=== PATIENT | female | born 1960 | race Caucasian/White ===

== ENCOUNTER 2016-10-03 10:02 | Emergency (ER) | payer MEDICAID ==
[~2016-10-03] VITALS: Ht 167.6 cm; Wt 69.4 kg
[~2016-10-03 10:02] MED LIST: ALENDRONATE SOD70 M1 PO; ASPIRIN81 M1 PO; BACLOFEN10 M1 PO; CARBAMAZEPINE200 MG PO; CARBAMAZEPINE400 MG PO; CLARITIN10 MG PO; DETROL LA; DETROL2 MG PO; DIAZEPAM5 MG PO; DIPHEN PO; EC NAPROSYN500 MG PO; GABAPENTIN400 M1 PO; HALOPERIDOL0.5 MG PO; HALOPERIDOL1 MG PO; LEVOTHYROXIN0.075 M1 PO; LIORESAL10 MG PO; NEURONTIN400 M1; NEURONTIN400 MG PO; OXYBUTYNIN5 MG PO; OYSTER CALCIUM1 TAB PO; OYSTER SHELL CA PO; SEROQUEL100 MG; SEROQUEL100 MG PO; TEGRETOL-XR200 MG; TOPAMAX25 MG PO; TOPOMAX; TRAZODONE50 M2 PO; TYLENOL ES500 MG PO; [UNRECOGNIZED DRUG - REMARK]
[2016-10-03 10:13] VITALS: BP 127/74
--- NOTE | 2016-10-03 10:15 | NUR ---
56/F [facility] FACILITY STAFF FOR C/O PAIN TO LEFT FOOT, PT. STATES SHE STEPPED ON OWN FOOT YESTERDAY 0.
--- NOTE | 2016-10-03 10:20 | NUR ---
Patient being evaluated by physician at bedside.
--- NOTE | 2016-10-03 10:29 | NUR ---
X-Ray at bedside.
[2016-10-03] MEDS ORDERED: IBUPROFEN 800 MG TAB PO ONE (10:50)
--- NOTE | 2016-10-03 11:00 | NUR ---
PT STS ALLERGIC TO MOTRIN. DR. DIAZ MADE AWARE.
[2016-10-03] MEDS ORDERED: ACETAMINOPHEN EXTRA STRENGTH 500 MG TAB PO ONE (11:10)
--- NOTE | 2016-10-03 11:10 | NUR ---
PT LEFT 2ND, 3RD, AND 4TH TOES STEFANY TAPED. WITH ORHTOSHOE APPLIED. PT DEVANG WELL.
--- NOTE | 2016-10-03 11:30 | NUR ---
Patient discharged with v/s stable. Written and verbal after care instructions given and explained. Patient alert, oriented and verbalized understanding of instructions. WHEELCHAIRED WITH FACILITY CAREGIVER. All questions addressed prior to discharge. ID band removed. Patient advised to follow up with PMD. Opportunity to ask questions provided and answered.
[2016-10-03 11:31] VITALS: BP 121/70
== END 2016-10-03 11:30 | disposition home or self-care (01) ==
LOC: MED 10:02
DX: S92.515A Nondisplaced fracture of proximal phalanx of left lesser toe(s), initial encounter for closed fracture (principal); Z88.5 Allergy status to narcotic agent; Z88.6 Allergy status to analgesic agent; Z79.82 Long term (current) use of aspirin; Z79.899 Other long term (current) drug therapy; X58.XXXA Exposure to other specified factors, initial encounter; Y93.89 Activity, other specified; Y92.89 Other specified places as the place of occurrence of the external cause; Y99.8 Other external cause status
CPT/HCPCS: 73620; 99284; Q0092

== ENCOUNTER 2017-06-30 20:10 | Inpatient (IN) | payer MEDICAID ==
[~2017-06-30] VITALS: Ht 167.6 cm; Wt 71.2 kg
[~2017-06-30 20:10] MED LIST changes: +ACET-6134 PO; -ALENDRONATE SOD70 M1 PO; +ASPI81CT89 PO; -ASPIRIN81 M1 PO; +BACL10TA4 PO; -BACLOFEN10 M1 PO; +CARB400T7 PO; -CARBAMAZEPINE200 MG PO; -CARBAMAZEPINE400 MG PO; -CLARITIN10 MG PO; -DETROL LA; -DETROL2 MG PO; -DIAZEPAM5 MG PO; -DIPHEN PO; -EC NAPROSYN500 MG PO; +GABA400C PO; -GABAPENTIN400 M1 PO; +HALO1TAB21 PO; -HALOPERIDOL0.5 MG PO; -HALOPERIDOL1 MG PO; +LEVO0.0712 PO; -LEVOTHYROXIN0.075 M1 PO; -LIORESAL10 MG PO; +LORA10TA19 PO; -NEURONTIN400 M1; -NEURONTIN400 MG PO; +OXYB5TAB24 PO; -OXYBUTYNIN5 MG PO; -OYSTER CALCIUM1 TAB PO; -OYSTER SHELL CA PO; -SEROQUEL100 MG; -SEROQUEL100 MG PO; -TEGRETOL-XR200 MG; -TOPAMAX25 MG PO; -TOPOMAX; +TRAZ-286 PO; -TRAZODONE50 M2 PO; -TYLENOL ES500 MG PO; +[UNRECOGNIZED DRUG - CODE] PO; +[UNRECOGNIZED DRUG - CODE] PO; -[UNRECOGNIZED DRUG - REMARK]
[2017-06-30 20:23] VITALS: BP 84/48
[2017-06-30] MEDS ORDERED: NACL 0.9% 3,000 ML IV ONE (20:55)
--- NOTE | 2017-06-30 20:57 | NUR ---
PT TAKEN TO BED 7
--- NOTE | 2017-06-30 21:00 | NUR ---
PATIENT IS A 56 Y/O FEMALE WHO PRESENTS TO THE ED C/O LOW BLOOD PRESSURE. PT COMES FROM [facility]. PT STATES, "I WASN'T FEELING GOOD AND WAS HAVING A HEADACHE AND CHILLS." PT DENIES CP, REPORTS NAUSEA, DENIES VOMITING/DIARRHEA, REPORTS SOB, LUNG SOUNDS CLEAR BL. PT DENIES PAIN. PT AAOX4, RR EVEN/UNLABORED. PT REPOSITIONED FOR COMFORT, BED IN LOWEST POSITION. ER MD DR. STEINER NOTIFIED. WILL CONTINUE TO MONITOR.
[2017-06-30 21:42] LABS: BASOPHILS # (AUTO) 0.2 K/uL (0.00-0.22); BASOPHILS % (AUTO) 1.6 % (0.0-2.0); EOSINOPHILS # (AUTO) 0.2 K/uL (0-0.4); EOSINOPHILS % (AUTO) 1.7 % (0.0-4.0); HEMATOCRIT 33.9 % (36-48); HEMOGLOBIN 11.5 g/dL (12.0-16.0); LYMPHOCYTES # (AUTO) 0.8 K/uL (2.5-16.5); LYMPHOCYTES % (AUTO) 5.8 % (20.5-51.1); MEAN CORPUSCULAR HEMOGLOBIN 31 pg (27-31); MEAN CORPUSCULAR HGB CONC 34 g/dL (33-37); MEAN CORPUSCULAR VOLUME 93 fL (80-94); MONOCYTES # (AUTO) 0.4 K/uL (0.8-1.0); MONOCYTES % (AUTO) 2.7 % (1.7-9.3); NEUTROPHILS # (AUTO) 11.9 K/uL (1.8-7.7); NEUTROPHILS % (AUTO) 88.2 % (42.2-75.2); PLATELET COUNT (AUTO) 228 K/uL (140-450); RED BLOOD CELL COUNT(AUTO) 3.67 MIL/uL (4.20-5.40); RED CELL DISTRIBUTION WIDTH 12.2 % (11.6-13.7); WHITE BLOOD COUNT (AUTO) 13.5 K/uL (4.8-10.8)
[2017-06-30 21:45] LABS: ANION GAP 14.1 (8-16); CARBON DIOXIDE 23.1 mmol/L (21-32); CREATININE 2.3 mg/dL (0.6-1.3); POTASSIUM 3.2 mmol/L (3.5-5.1)
[2017-06-30 21:50] LABS: ALBUMIN 2.8 g/dL (3.4-5.0); TOTAL BILIRUBIN 0.4 mg/dL (0.0-1.0)
[2017-06-30] MEDS ORDERED: PIPERACILLIN/TAZOBACTAM 3.375 GM in DEXTROSE 5% 50 ML IV ONE (21:50)
[2017-06-30 21:53] LABS: PROTHROMBIN TIME 12.5 secs (10.8-13.4)
[2017-06-30] MEDS ORDERED: ACETAMINOPHEN 325 MG TAB PO PRN (22:05)
[2017-06-30] MEDS ORDERED: ONDANSETRON 4 MG/2 ML VIAL IVP PRN (22:05)
[2017-06-30] MEDS ORDERED: POTASSIUM CHLORIDE 40 MEQ, LIDOCAINE 1% 25 MG in NACL 0.9% 250 ML IV ONE (22:10)
[2017-06-30] MEDS ORDERED: PIPERACILLIN/TAZOBACTAM 3.375 GM VIAL IV ONE (22:14)
--- NOTE | 2017-06-30 22:23 | NUR ---
Patient will be admitted to care of [facility]. Admited to DR. MOLINA. Will go to room 108A. Belongings list completed. Report to TONI BRYSON.
[2017-06-30 23:30] VITALS: BP 106/58
--- NOTE | 2017-06-30 23:30 | NUR ---
PATIENT ADMITTED TO THE UNIT FROM ER. PATIENT BROUGHT IN BY JUANY. PATIENT IS AWAKE, ALERT, AND ORIENTED. NO SIGNS AND SYMPTOMS OF DISTRESS NOTED. IV SITE NOTED ON RIGHT HAND, ASYMPTOMATIC, INTACT AND PATENT. SEIZURE PRECAUTIONS PUT IN PLACE. BED IN LOWEST POSITION, SIDE RAILS UP AND CALL LIGHT WITHIN REACH. WILL CONTINUE TO MONITOR.
[2017-06-30 23:32] LABS: APPEARANCE,URINE SL CLOUDY (CLEAR); BILIRUBIN,URINE NEGATIVE (NEGATIVE); BLOOD, URINE NEGATIVE (NEGATIVE); COLOR,URINE YELLOW (YELLOW); LEUKOCYTE ESTERASE ,URINE 2+ (NEGATIVE); NITRITE, URINE POSITIVE (NEGATIVE); UGLUCOSE NEGATIVE (NEGATIVE)
[2017-06-30] MEDS ORDERED: ACETAMINOPHEN EXTRA STRENGTH 500 MG TAB PO PRN (23:55)
[2017-06-30 23:56] LABS: RBC,URINE 0-5 (RARE) /HPF (0-5); WBC,URINE TOO MANY TO COUNT /HPF (0-5)
[2017-06-30 23:58] LABS: FREE T4 (FREE THYROXINE) 1.05 ng/dL (0.76-1.46); MAGNESIUM 1.5 mg/dL (1.8-2.4); PHOSPHORUS 3.3 mg/dL (2.5-4.9); THYROID STIMULATING HORMONE 1.73 uIU/mL (0.34-3.74)
[2017-07-01] MEDS: NACL 0.9% 1,000 ML IV SCH ×4 (00:15→23:19)
[2017-07-01] MEDS ORDERED: SUMAtriptan 50 MG TAB PO ONE (00:55)
[2017-07-01] MEDS ORDERED: POTASSIUM CHLORIDE 10 MEQ TABER PO ONE (01:00)
--- NOTE | 2017-07-01 01:00 | NUR ---
TRIED CALLING [facility] SEVERAL TIMES TO GET NEW ORDERS VERIFIED. PHONE NUMBER IS NOT WORKING. [phone]
--- NOTE | 2017-07-01 01:08 | NUR ---
[employer] OPERATIONS SPECIALIST UNABLE TO DRAW BLOOD FOR LACTIC ACID. WILL RECHECK IN THE MORNING
[2017-07-01] MEDS ORDERED: MAG SULF 2000 MG/WATER PREMIX 50 ML IV ONE (01:10)
[2017-07-01 04:00] VITALS: BP 105/57
[2017-07-01] MEDS ORDERED: PIPERACILLIN/TAZOBACTAM 3.375 GM VIAL IV ONE (04:23)
[2017-07-01] MEDS ORDERED: PIPERACILLIN/TAZOBACTAM 3.375 GM in DEXTROSE 5% 50 ML IV SCH (05:00)
[2017-07-01 07:16] LABS: BASOPHILS # (AUTO) 0.1 K/uL (0.00-0.22); BASOPHILS % (AUTO) 0.6 % (0.0-2.0); EOSINOPHILS # (AUTO) 0.2 K/uL (0-0.4); EOSINOPHILS % (AUTO) 2.1 % (0.0-4.0); HEMATOCRIT 31.3 % (36-48); HEMOGLOBIN 10.4 g/dL (12.0-16.0); LYMPHOCYTES # (AUTO) 0.7 K/uL (2.5-16.5); LYMPHOCYTES % (AUTO) 6.1 % (20.5-51.1); MEAN CORPUSCULAR HEMOGLOBIN 31 pg (27-31); MEAN CORPUSCULAR HGB CONC 33 g/dL (33-37); MEAN CORPUSCULAR VOLUME 93 fL (80-94); MONOCYTES # (AUTO) 0.4 K/uL (0.8-1.0); MONOCYTES % (AUTO) 3.5 % (1.7-9.3); NEUTROPHILS # (AUTO) 9.5 K/uL (1.8-7.7); NEUTROPHILS % (AUTO) 87.7 % (42.2-75.2); PLATELET COUNT (AUTO) 172 K/uL (140-450); RED BLOOD CELL COUNT(AUTO) 3.36 MIL/uL (4.20-5.40); RED CELL DISTRIBUTION WIDTH 12.5 % (11.6-13.7); WHITE BLOOD COUNT (AUTO) 10.9 K/uL (4.8-10.8)
--- NOTE | 2017-07-01 07:17 | NUR ---
PATIENT REPORT GIVEN TO MORNING NURSE AT BEDSIDE. PATIENT IS IN STABLE CONDITION.
[2017-07-01 07:25] LABS: ANION GAP 12.2 (8-16); CARBON DIOXIDE 20.6 mmol/L (21-32); CREATININE 1.2 mg/dL (0.6-1.3); POTASSIUM 3.8 mmol/L (3.5-5.1)
--- NOTE | 2017-07-01 07:30 | NUR ---
PATIENT REPORT RECEIVED AT BEDSIDE FROM NIGHT RN. PATIENT IS AWAKE, ALERT, AND ORIENTEDX4. NO SIGNS AND SYMPTOMS OF DISTRESS NOTED. IV SITE NOTED ON RIGHT HAND, ASYMPTOMATIC, INTACT AND PATENT. SEIZURE PRECAUTIONS IN PLACE. BED IN LOWEST POSITION, SIDE RAILS UP AND CALL LIGHT WITHIN REACH. WILL CONTINUE TO MONITOR.
[2017-07-01 07:45] LABS: MAGNESIUM 2.4 mg/dL (1.8-2.4)
--- NOTE | 2017-07-01 08:22 | NUR ---
PATIENT HAS BEEN SCREENED AND CATEGORIZED HIGH NUTRITION RISK. PATIENT WILL BE SEEN WITHIN 1-2 DAYS OF ADMISSION. 07/01/17-07/02/[address]
[2017-07-01 08:52] VITALS: BP 131/66
[2017-07-01] MEDS ORDERED: CARBAMAZEPINE 600 MG PO SCH (09:00)
[2017-07-01] MEDS ORDERED: PHENYTOIN 100 MG CAPER PO SCH (09:00)
--- NOTE | 2017-07-01 09:00 | NUR ---
PT REFUSED TO EAT BREAKFAST BECAUSE OF VOMITING EPISODEX1. MADE DR HARDING AWARE.
[2017-07-01] MEDS: HALOPERIDOL 1 MG TAB PO SCH ×2 (09:10→21:05)
[2017-07-01] MEDS: CALCIUM CARB/VIT-D 500 MG/200 IU 1 TAB PO SCH ×2 (09:10→21:03)
[2017-07-01] MEDS: LORATADINE 10 MG TAB PO SCH (09:11)
[2017-07-01] MEDS: GABAPENTIN 100 MG CAP PO SCH ×3 (09:11→17:45)
[2017-07-01] MEDS: LEVOTHYROXINE 0.075 MG TAB PO SCH (09:11)
[2017-07-01] MEDS: ASPIRIN 81 MG TAB.CHEW PO SCH (09:12)
[2017-07-01] MEDS: DOCUSATE SODIUM 100 MG GELCAP PO SCH ×2 (09:12→21:03)
[2017-07-01] MEDS: LACTOBACILLUS RHAMNOSUS GG 1 EACH CAP PO SCH (09:13)
[2017-07-01] MEDS: OXYBUTYNIN 5 MG TAB PO SCH ×2 (10:09→21:04)
[2017-07-01] MEDS: PANTOPRAZOLE 40 MG INJ VIAL IVP SCH (10:23)
--- NOTE | 2017-07-01 11:13 | NUR ---
pATIENT REFUSED IS AT 11:00AM. LEFT IS AT PATIENT BEDSIDE
[2017-07-01 12:00] VITALS: BP 125/56
[2017-07-01] MEDS: PIPER/TAZO 3.375GM/D5W PREMIX 50 ML IV SCH ×2 (12:24→21:09)
[2017-07-01] MEDS ORDERED: SODIUM PHOS / POTASSIUM PHOS 1 PKT PDR PO SCH (12:52)
--- NOTE | 2017-07-01 13:15 | NUR ---
SPOKE WITH ALFA FROM [facility], [id number]. SHE SAID TO FAX ONLY TO THEM BECAUSE THE PATIENT IS OUT OF AREA, NO NEED TO FAX TO [facility]. FAXED INITIAL REVIEW TO FERNANDO AT [phone]
--- NOTE | 2017-07-01 13:28 | NUR ---
07/01/17 RD INITIAL ASSESSMENT COMPLETED PLEASE REFER TO NUTRITION ASSESSMENT UNDER CARE ACTIVITY FOR ESTIMATED NUTRITIONAL NEEDS. 1. CONTINUE REGULAR DIET TOLERATED PER MD --RD TO MONITOR RENAL LAB VALUES FOR A POSSIBLE CHANGE IN DIET ORDER 2. ENCOURAGE INCREASED PO INTAKES 3. RD TO FOLLOW-UP 3-5 DAYS, MODERATE RISK JOSH COOPER, RD
[2017-07-01 16:00] VITALS: BP 125/59
--- NOTE | 2017-07-01 16:30 | NUR ---
PT C/O OF HEADACHE, TYLENOL WAS NOT EFFECTIVE. MADE DOCTOR AWARE. MD WILL PUT NEW ORDERS.
[2017-07-01] MEDS ORDERED: APAP/BUTAL/CAFF 325/50/40 MG 1 TAB PO SCH (17:00)
--- NOTE | 2017-07-01 18:00 | NUR ---
CALLED PHARM ABOUT FIORICET WASN'T AVAILABLE. PHARM STATED WILL DELIVER.
--- NOTE | 2017-07-01 19:16 | NUR ---
PT REFUSED TO USE THE IS, SHE SAID THAT IS NOT SOB AND DOES NOT KNOW WHY THEY ORDER.
--- NOTE | 2017-07-01 19:30 | NUR ---
PATIENT REPORT GIVEN TO NIGHT RN AT BEDSIDE. PATIENT IS IN STABLE CONDITION.
--- NOTE | 2017-07-01 19:31 | NUR ---
PATIENT REPORT RECEIVED FROM MORNING NURSE. PATIENT IS AWAKE, ALERT, AND ORIENTED. NO SIGNS AND SYMPTOMS OF DISTRESS NOTED. SEIZURE PRECAUTIONS AND FALL PRECAUTIONS IN PLACE. IV SITE NOTED ON RIGHT HAND AND LEFT WRIST. BED IN LOWEST POSITION, SIDE RAILS UP AND CALL LIGHT WITHIN REACH. WILL CONTINUE TO MONITOR.
[2017-07-01 20:00] VITALS: BP 130/69
[2017-07-01] MEDS: BACLOFEN 10 MG TAB PO SCH (21:04)
[2017-07-01] MEDS: carBAMazepine 200 MG TAB PO SCH (21:04)
[2017-07-01] MEDS: traZODone 50 MG TAB PO SCH (21:04)
[2017-07-01] MEDS: levETIRAcetam 500 MG TAB PO SCH (21:05)
[2017-07-01] MEDS ORDERED: APAP/BUTAL/CAFF 325/50/40 MG 1 TAB ONE (22:20)
[2017-07-02] VITALS: BP 128/65
[2017-07-02] MEDS: HYDROcodone/APAP 7.5/325 MG 1 TAB PO PRN (00:46)
[2017-07-02 04:00] VITALS: BP 127/64
[2017-07-02] MEDS: PIPER/TAZO 3.375GM/D5W PREMIX 50 ML IV SCH ×3 (05:13→21:06)
[2017-07-02] MEDS ORDERED: ALENDRONATE SODIUM 70 MG TAB PO SCH (06:00)
[2017-07-02] MEDS: NACL 0.9% 1,000 ML IV SCH ×4 (06:12→23:45)
[2017-07-02 07:07] LABS: BASOPHILS # (AUTO) 0.1 K/uL (0.00-0.22); EOSINOPHILS # (AUTO) 0.2 K/uL (0-0.4); EOSINOPHILS % (AUTO) 3.4 % (0.0-4.0); HEMATOCRIT 28.8 % (36-48); HEMOGLOBIN 9.5 g/dL (12.0-16.0); LYMPHOCYTES # (AUTO) 1.4 K/uL (2.5-16.5); LYMPHOCYTES % (AUTO) 30.1 % (20.5-51.1); MEAN CORPUSCULAR HEMOGLOBIN 31 pg (27-31); MEAN CORPUSCULAR HGB CONC 33 g/dL (33-37); MEAN CORPUSCULAR VOLUME 93 fL (80-94); MONOCYTES # (AUTO) 0.4 K/uL (0.8-1.0); MONOCYTES % (AUTO) 7.7 % (1.7-9.3); NEUTROPHILS # (AUTO) 2.6 K/uL (1.8-7.7); NEUTROPHILS % (AUTO) 55.8 % (42.2-75.2); PLATELET COUNT (AUTO) 171 K/uL (140-450); RED CELL DISTRIBUTION WIDTH 12.5 % (11.6-13.7); WHITE BLOOD COUNT (AUTO) 4.7 K/uL (4.8-10.8)
--- NOTE | 2017-07-02 07:22 | NUR ---
PATIENT REPORT GIVEN TO MORNING NURSE AT BEDSIDE. PATIENT IS IN STABLE CONDITION
--- NOTE | 2017-07-02 07:23 | NUR ---
RECEIVED REPORT FROM METAL WEATHER STRIPPER NURSE. PATIENT SITTING IN BED WITH BREAKFAST TRAY IN FRONT. NO DISTRESS NOTED, DENIES ANY PAIN AT THIS TIME. AAOX4, SKIN COLOR APPROPRIATE TO ETHNICITY, CALM, COOPERATIVE, WARM TO TOUCH. SKIN IS INTACT. IV SITE IS INTACT, PATENT, AND INFUSING. LUNGS CTA ON ALL LOBES. ABDOMEN SOFT, NON-DISTENDED. ASSISTED PATIENT ON TO BEDPAN. REVIEWED PLAN OF CARE WITH PATIENT. PATIENT VERBALIZED UNDERSTANDING. SAFETY MEASURES IN PLACE, FALL PRECAUTIONS IN PLACE. WILL CONTINUE TO MONITOR.
[2017-07-02 07:27] LABS: ANION GAP 14.2 (8-16); CARBON DIOXIDE 20.2 mmol/L (21-32); CREATININE 0.8 mg/dL (0.6-1.3); POTASSIUM 3.4 mmol/L (3.5-5.1)
[2017-07-02 07:47] LABS: MAGNESIUM 1.8 mg/dL (1.8-2.4); PHOSPHORUS 2.3 mg/dL (2.5-4.9)
[2017-07-02 08:00] VITALS: BP 143/94
--- NOTE | 2017-07-02 08:00 | NUR ---
ASSISTED PATIENT WITH BEDPAN FOR BOWEL MOVEMENT. CONDITION UNCHANGED. SAFETY MEASURES IN PLACE, CALL LIGHT WITHIN REACH. WILL CONTINUE TO MONITOR.
[2017-07-02] MEDS: PANTOPRAZOLE 40 MG INJ VIAL IVP SCH ×2 (09:00→09:38)
--- NOTE | 2017-07-02 09:30 | NUR ---
PATIENT SITTING IN BED. NO DISTRESS NOTED. DENIES ANY PAIN. RESPIRATIONS EVEN, UNLABORED ON ROOM AIR. MEDICATIONS DUE GIVEN. AAOX4, CALM, COOPERATIVE. ASSISTED PATIENT WITH BEDPAN. CONTINUES TO HAVE GENERALIZED WEAKNESS. SAFETY MEASURES IN PLACE, CALL LIGHT WITHIN REACH. WILL CONTINUE TO MONITOR.
[2017-07-02] MEDS: ASPIRIN 81 MG TAB.CHEW PO SCH (09:38)
[2017-07-02] MEDS: levETIRAcetam 500 MG TAB PO SCH ×2 (09:39→21:08)
[2017-07-02] MEDS: CALCIUM CARB/VIT-D 500 MG/200 IU 1 TAB PO SCH ×2 (09:39→21:08)
[2017-07-02] MEDS: OXYBUTYNIN 5 MG TAB PO SCH ×2 (09:39→21:07)
[2017-07-02] MEDS: carBAMazepine 200 MG TAB PO SCH ×2 (09:40→21:08)
[2017-07-02] MEDS: LACTOBACILLUS RHAMNOSUS GG 1 EACH CAP PO SCH (09:40)
[2017-07-02] MEDS: LORATADINE 10 MG TAB PO SCH (09:40)
[2017-07-02] MEDS: LEVOTHYROXINE 0.075 MG TAB PO SCH (09:41)
[2017-07-02] MEDS: HALOPERIDOL 1 MG TAB PO SCH ×2 (09:41→21:07)
[2017-07-02] MEDS: DOCUSATE SODIUM 100 MG GELCAP PO SCH ×2 (09:41→21:06)
--- NOTE | 2017-07-02 10:30 | NUR ---
DR. HARDING AT BEDSIDE REVIEWING PLAN OF CARE WITH PATIENT. WILL CONTINUE TO MONITOR.
[2017-07-02] MEDS: GABAPENTIN 100 MG CAP PO SCH ×3 (10:41→17:35)
--- NOTE | 2017-07-02 11:30 | NUR ---
PATIENT SITTING IN BED WITH FAMILY MEMBERS AT BEDSIDE. PATIENT HAS LUNCH TRAY IN FRONT AND IS EATING. NO DISTRESS NOTED. DENIES ANY PAIN. CONDITION UNCHANGED. SAFETY MEASURES IN PLACE, CALL LIGHT WITHIN REACH. WILL CONTINUE TO MONITOR.
[2017-07-02 12:00] VITALS: BP 135/57
--- NOTE | 2017-07-02 13:10 | NUR ---
PATIENT SITTING IN BED WATCHING TV. NO DISTRESS NOTED. DENIES ANY PAIN. CONDITION UNCHANGED. MEDICATIONS DUE GIVEN. UNABLE TO START ZOSYN IVPB AT THIS TIME. BOTH IV SITES ARE INFILTRATED. IV SITES REMOVED WITH MINIMAL BLOOD AND LUMEN COMPLETELY INTACT. ATTEMPTED TO START A NEW IV LINE, UNSUCCESSFUL ON FIRST ATTEMPT. PATIENT IS A DIFFICULT STICK. NOTIFIED CHARGE NURSE. CHARGE NURSE TO ATTEMPT TO START A NEW IV LINE. SAFETY MEASURES IN PLACE, CALL LIGHT WITHIN REACH. WILL CONTINUE TO MONITOR.
--- NOTE | 2017-07-02 15:26 | NUR ---
PATIENT SITTING IN BED WATCHING TV. NEW IV LINE ON LEFT HAND STARTED BY CHARGE NURSE ON FIRST ATTEMPT. IV ZOSYN STARTED, AND IVF STARTED AGAIN. NO DISTRESS NOTED, CALL LIGHT WITHIN REACH. CONDITION UNCHANGED. WILL CONTINUE TO MONITOR.
[2017-07-02 16:00] VITALS: BP 134/59
[2017-07-02] MEDS ORDERED: GABAPENTIN 300 MG CAP ONE (17:14)
[2017-07-02] MEDS ORDERED: GABAPENTIN 100 MG CAP ONE (17:14)
--- NOTE | 2017-07-02 17:30 | NUR ---
PATIENT LYING IN BED SLEEPING. AROUSABLE BY VOICE. NO DISTRESS NOTED. DENIES ANY PAIN. RESPIRATIONS EVEN, UNLABORED, ON ROOM AIR. CONDITION UNCHANGED. MEDICATIONS DUE GIVEN. ASSISTED PATIENT ON BED [place] FOR VOIDING. SAFETY MEASURES IN PLACE, CALL LIGHT WITHIN REACH. WILL CONTINUE TO MONITOR.
--- NOTE | 2017-07-02 18:49 | NUR ---
PATIENT SITTING IN BED WATCHING TV. NO DISTRESS NOTED. DENIES ANY PAIN. CONDITION UNCHANGED. SAFETY MEASURES IN PLACE, CALL LIGHT WITHIN REACH. WILL CONTINUE TO MONITOR.
--- NOTE | 2017-07-02 19:20 | NUR ---
GAVE REPORT TO OCCUPATIONAL HEALTH NURSE SUPERVISOR NURSE FOR CONTINUITY OF CARE. PATIENT IN STABLE CONDITION.
--- NOTE | 2017-07-02 19:21 | NUR ---
RECEIVED REPORT FROM DAY SHIFT RN. PT IS A/OX4, ON ROOM AIR. PT HAS A RIGHT HAND 22G IV, INFUSING NS@126ML/HR, INTACT AND ASYMPTOMATIC. SKIN INTACT. PT IS ON BEDREST. SAFETY PRECAUTIONS IN PLACE. UPDATED BOARD. DISCUSSED PLAN OF CARE WITH PT, PT VERBALIZED UNDERSTANDING. VITAL SIGNS WITHIN NORMAL LIMITS. VITAL SIGNS ARE WITHIN NORMAL LIMITS. PT IN STABLE CONDITION, NO SIGNS OF DISTRESS NOTED. BED IN LOW POSITION, CALL LIGHT WITHIN REACH. WILL CONTINUE TO MONITOR.
[2017-07-02 20:00] VITALS: BP 134/75
[2017-07-02] MEDS: traZODone 50 MG TAB PO SCH (21:07)
[2017-07-02] MEDS: BACLOFEN 10 MG TAB PO SCH (21:08)
[2017-07-03] VITALS: BP 152/73
[2017-07-03 04:00] VITALS: BP 142/74
[2017-07-03] MEDS: PIPER/TAZO 3.375GM/D5W PREMIX 50 ML IV SCH (05:43)
--- NOTE | 2017-07-03 06:15 | NUR ---
PT REFUSED MORNING LABS. SPOKE TO PT, BUT PT DID NOT WANT TO GIVE CONSENT.
[2017-07-03] MEDS: NACL 0.9% 1,000 ML IV SCH (07:00)
--- NOTE | 2017-07-03 07:15 | NUR ---
ENDORSED PT TO DAY SHIFT RN FOR CONTINUITY OF CARE. PT IN STABLE CONDITION.
--- NOTE | 2017-07-03 07:17 | NUR ---
RECEIVED REPORT FROM SOUNDSCRIBER MECHANIC RN. PATIENT IS AAOX4, HAS NO SIGNS AND SYMPTOMS OF ACUTE DISTRESS NOTED AT THIS TIME. RESPIRATIONS ARE EVEN AND UNLABORED. PATIENT HAS NORMAL SALINE INFUSING TO RIGHT HAND 22G AT 126 ML/HR. SITE IS CLEAN, DRY, PATENT AND INTACT. PATIENT HAS HX OF SEIZURES, AND SEIZURE PRECAUTIONS ARE IN PLACE. BED IN LOWEST POSITION, SIDERAILS UP X2 AND PADDED, CALL LIGHT PLACED WITHIN REACH. WILL CONTINUE TO MONITOR.
--- NOTE | 2017-07-03 08:01 | NUR ---
MALLY CORRIGAN, INFORMED ME THAT PATIENTS IV IS OUT. UNKNOWN IF PATIENT TOOK IT OUT HERSELF, SHE STATED THAT SHE DIDN'T TAKE IT OUT. PATIENT HAS NO SIGNS AND SYMPTOMS OF ACUTE DISTRESS NOTED AT THIS TIME. WILL REINSERT IV.
[2017-07-03 08:05] VITALS: BP 142/89
[2017-07-03] MEDS: LACTOBACILLUS RHAMNOSUS GG 1 EACH CAP PO SCH (09:00)
[2017-07-03] MEDS: LORATADINE 10 MG TAB PO SCH (10:18)
[2017-07-03] MEDS: ASPIRIN 81 MG TAB.CHEW PO SCH (10:18)
[2017-07-03] MEDS: CALCIUM CARB/VIT-D 500 MG/200 IU 1 TAB PO SCH (10:19)
[2017-07-03] MEDS: DOCUSATE SODIUM 100 MG GELCAP PO SCH (10:19)
[2017-07-03] MEDS: LEVOTHYROXINE 0.075 MG TAB PO SCH (10:19)
[2017-07-03] MEDS: HYDROcodone/APAP 7.5/325 MG 1 TAB PO PRN (10:20)
[2017-07-03] MEDS: carBAMazepine 200 MG TAB PO SCH (10:20)
[2017-07-03] MEDS: HALOPERIDOL 1 MG TAB PO SCH (10:20)
[2017-07-03] MEDS: levETIRAcetam 500 MG TAB PO SCH (10:21)
[2017-07-03] MEDS: GABAPENTIN 100 MG CAP PO SCH (10:21)
[2017-07-03] MEDS: OXYBUTYNIN 5 MG TAB PO SCH (10:22)
[2017-07-03] MEDS ORDERED: LEVO750T2 PO (10:29)
[2017-07-03] MEDS ORDERED: LACT10CA PO (10:29)
[2017-07-03 12:00] VITALS: BP 149/60
--- NOTE | 2017-07-03 15:00 | NUR ---
PATIENTS RIDE TO TAKE HER BACK TO [facility] IS HERE TO TRANSPORT HER. GAVE PATIENT HER DISCHARGE INSTRUCTIONS, HAS A PRESCRIPTION TO TAKE HOME. INFORMED PATIENT TO FOLLOW UP WITH PCP, AND TO SEEK EMERGENCY MEDICAL ATTENTION IF HAS WORSENING SIGNS AND SYMPTOMS, CHEST PAIN, SOB, OR FEVER. PATIENT REMOVED HER OWN ID BAND AND TELE MONITOR. PATIENT IN STABLE CONDITION AT THIS TIME, NO SIGNS AND SYMPTOMS OF DISTRESS NOTED. WILL WHEEL PATIENT OUT.
--- NOTE | 2017-07-03 17:15 | NUR ---
SPOKE WITH MED SURG CHARGE WHOM STATED PT WAS DISCHARGED WITH RX LEVAQUIN PO. NOTIFIED OF PT'S M[employer] RESISTANT ORGANISM E. COLI POSITIVE. STATED HAVE PT ON MACROBID 100MG BID X 10 INSTEAD OF LEVAQUIN PT CALLED TO NUMBER ON FILE---PT STATED SHE WILL COME IN THE MORNING TO DEVELOPMENTAL TRAINING COUNSELOR RX
--- NOTE | 2017-07-03 17:27 | NUR ---
CALLED PT BACK AND INFORMED PT MEDICATION CHANGE WILL BE PHONED IN TO HER PHARMACY [id number] [phone] IN [facility]---I SPOKE WITH PHARMACIST DENISHA PT AGREED AND WAS THANKFUL.
--- NOTE | 2017-07-03 21:48 | NUR ---
RESULT OF BLOOD CULTURE CAME BACK THIS LATE AFTERNOON.THE PT WAS DISCHARGED THIS AM.RESULT IS GRAM POSITIVE COCCI IN CLUSTERS.COPY OF RESULT GIVEN TO RESIDENT .
== END 2017-07-03 15:00 | disposition home or self-care (01) | DRG 720 ==
LOC: MED 20:10 → MTU 22:09
PROVIDERS: ADMIT Family Medicine; ATTEND Family Medicine
DX: A41.9 Sepsis, unspecified organism (principal); N17.0 Acute kidney failure with tubular necrosis; E43 Unspecified severe protein-calorie malnutrition; G93.41 Metabolic encephalopathy; E11.40 Type 2 diabetes mellitus with diabetic neuropathy, unspecified; E86.0 Dehydration; E87.1 Hypo-osmolality and hyponatremia; D64.9 Anemia, unspecified; N39.0 Urinary tract infection, site not specified; R65.20 Severe sepsis without septic shock; E87.6 Hypokalemia; E83.42 Hypomagnesemia; F29 Unspecified psychosis not due to a substance or known physiological condition; J98.11 Atelectasis; E03.9 Hypothyroidism, unspecified; N28.9 Disorder of kidney and ureter, unspecified; F79 Unspecified intellectual disabilities; G40.909 Epilepsy, unspecified, not intractable, without status epilepticus; Z68.25 Body mass index [BMI] 25.0-25.9, adult; Z88.6 Allergy status to analgesic agent
CPT/HCPCS: 36415; 71010; 80048; 80053; 80156; 81001; 82140; 82150; 83036; 83605; 83690; 83735; 83880; 84100; 84439; 84443; 84484; 85025; 85610; 87040; 87081; 87086; 87186; 93005; 96361; 96365; 99285; C1758; C9113; J2001; J2543; J3475; J3480; J7030; J7060; Q0092

== ENCOUNTER 2017-11-26 12:02 | Emergency (ER) | payer MEDICAID ==
[~2017-11-26] VITALS: Ht 167.6 cm; Wt 68.5 kg
[~2017-11-26 12:02] MED LIST changes: -ACET-6134 PO; -CARB400T7 PO; +LACT10CA PO; +LEVO750T2 PO; -[UNRECOGNIZED DRUG - CODE] PO
[2017-11-26 12:10] VITALS: BP 149/82
--- NOTE | 2017-11-26 12:19 | NUR ---
PT AMBULATES TO CHAIR C
--- NOTE | 2017-11-26 13:15 | NUR ---
PT C/O BILAT KNEE PAIN S/P MECH FALL 2 DAYS AGO WHILE TRYING TO STAND UP. PT USES WALKER WHILE AMBULATING. ABRASIONS TO BILAT KNEES OBSERVED WITH MINIMAL BRUISING, +CSM DISTAL TO KNEE, GOOD ROM.
[2017-11-26] MEDS ORDERED: BACITRACIN OINT 500 UNITS/GM PKT TP ONE (13:20)
[2017-11-26] MEDS ORDERED: NEOMYCIN/POLYMYXIN/BACITRACIN 0.9 GM/1 PKT TP ONE (13:25)
[2017-11-26] MEDS: NAPROXEN 375 MG TAB PO SCH ×2 (13:46→13:47)
[2017-11-26 13:52] VITALS: BP 133/78
== END 2017-11-26 13:53 | disposition home or self-care (01) ==
LOC: MED 12:02
DX: S80.02XA Contusion of left knee, initial encounter (principal); S80.01XA Contusion of right knee, initial encounter; G80.9 Cerebral palsy, unspecified; Z88.5 Allergy status to narcotic agent; Z88.6 Allergy status to analgesic agent; Z88.1 Allergy status to other antibiotic agents; W18.39XA Other fall on same level, initial encounter; Y93.89 Activity, other specified; Y92.89 Other specified places as the place of occurrence of the external cause; Y99.8 Other external cause status
CPT/HCPCS: 90471; 90715; 99283

== ENCOUNTER 2018-05-24 19:26 | Emergency (ER) | payer MEDICAID ==
[~2018-05-24] VITALS: Ht 167.6 cm; Wt 65.8 kg
[~2018-05-24 19:26] MED LIST changes: -TRAZ-286 PO; +TRAZ-344 PO
[2018-05-24 19:45] VITALS: BP 126/68
[2018-05-24] MEDS ORDERED: ACETAMINOPHEN 325 MG TAB PO ONE (21:00)
[2018-05-24 22:11] VITALS: BP 123/65
== END 2018-05-24 22:13 | disposition home or self-care (01) ==
LOC: MED 19:26
DX: S43.401A Unspecified sprain of right shoulder joint, initial encounter (principal); Z88.5 Allergy status to narcotic agent; Z88.6 Allergy status to analgesic agent; Z79.899 Other long term (current) drug therapy; W18.39XA Other fall on same level, initial encounter; Y93.89 Activity, other specified; Y92.89 Other specified places as the place of occurrence of the external cause; Y99.8 Other external cause status
CPT/HCPCS: 73030; 99284

== ENCOUNTER 2018-09-07 09:42 | Emergency (ER) | payer MEDICAID ==
[~2018-09-07] VITALS: Ht 167.6 cm; Wt 69.9 kg
[~2018-09-07 09:42] MED LIST changes: +ASPI-1718 PO; -ASPI81CT89 PO
[2018-09-07 10:03] VITALS: BP 127/74
--- NOTE | 2018-09-07 12:03 | NUR ---
PT TO BED 6 VIA WHEELCHAIR
--- NOTE | 2018-09-07 12:10 | NUR ---
C/O MECHANICAL FALL YESTERDAY ---BILATERAL KNEES ABRASION, REDNESS, SWELLING RIGHT ANKLE DISCOLORATION DENIES HEAD INJURY---DENIES SEIZURE ACTIVITY HX---CEREBRAL PALSY, SEIZURE RX--ALENDRONATE, BACLOFEN, TRAZODONE, GABAPENTIN, LEVETIRACETAM, VIT D3, ASA, LORATADINE, LEVOTHYROXINE, HALOPERIDOL
[2018-09-07 13:58] VITALS: BP 125/75
--- NOTE | 2018-09-07 13:59 | NUR ---
Patient discharged with v/s stable. Written and verbal after care instructions given and explained. Patient alert, oriented and verbalized understanding of instructions. Wheel Chair Assisted with by caregiver. All questions addressed prior to discharge. ID band removed. Patient advised to follow up with PMD. Rx of NAPROSYN given. Patient educated on indication of medication including possible reaction and side effects. Opportunity to ask questions provided and answered.
== END 2018-09-07 13:59 | disposition home or self-care (01) ==
LOC: MED 09:42
DX: S80.02XA Contusion of left knee, initial encounter (principal); S80.01XA Contusion of right knee, initial encounter; S90.01XA Contusion of right ankle, initial encounter; Z88.5 Allergy status to narcotic agent; Z88.2 Allergy status to sulfonamides; Z88.8 Allergy status to other drugs, medicaments and biological substances; Z79.82 Long term (current) use of aspirin; Z79.899 Other long term (current) drug therapy; W01.0XXA Fall on same level from slipping, tripping and stumbling without subsequent striking against object, initial encounter; Y93.89 Activity, other specified; Y92.89 Other specified places as the place of occurrence of the external cause; Y99.8 Other external cause status
CPT/HCPCS: 73562; 73610; 99283

== ENCOUNTER 2018-10-16 16:17 | Emergency (ER) | payer MEDICAID ==
[~2018-10-16] VITALS: Ht 167.6 cm; Wt 70.8 kg
--- NOTE | 2018-10-16 16:21 | NUR ---
AMBULATED WITH ASSISTANCE TO BED 8.
[2018-10-16 16:26] VITALS: BP 137/102
--- NOTE | 2018-10-16 16:31 | NUR ---
PATIENT BIB PIG HANDLER TO ED WITH THE CHIEF C/O HEAD PAIN S/P UNWITNESSED FALL YESTERDAY. NO LOC. PT DOES NOT KNOW WHICH PART OF THE HEAD SHE HIT DURING FALL. NO INJURY OR SWELLING NOTED. PT DENIES ANY PAIN AT THIS TIME. DENIES N/V/D. SKIN IS PINK/WARM/DRY. AAOX4, WALKS WITH ASSISTIVE DEVICE. COUGH PRESENT. NO BLOOD IN PHLEGM PER PT. LUNGS CLEAR BL. HR EVEN AND REGULAR. PT DENIES ANY FEVER, CP, SOB AT THIS TIME. VSS. PATIENT POSITIONED FOR COMFORT; HOB ELEVATED; BEDRAILS UP X2; BED DOWN. ER MD MADE AWARE OF PT STATUS.
--- NOTE | 2018-10-16 16:52 | NUR ---
PT TAKEN TO CT.
--- NOTE | 2018-10-16 17:10 | NUR ---
PT BACK FROM CT.
[2018-10-16 17:45] VITALS: BP 130/76
--- NOTE | 2018-10-16 17:45 | NUR ---
Patient discharged with v/s stable. Written and verbal after care instructions given and explained. Patient verbalized understanding. Ambulatory with steady gait. All questions addressed prior to discharge. Advised to follow up with PMD.
== END 2018-10-16 17:45 | disposition home or self-care (01) ==
LOC: MED 16:17
DX: S29.012A Strain of muscle and tendon of back wall of thorax, initial encounter (principal); Z88.5 Allergy status to narcotic agent; Z88.2 Allergy status to sulfonamides; Z88.8 Allergy status to other drugs, medicaments and biological substances; Z79.82 Long term (current) use of aspirin; Z79.899 Other long term (current) drug therapy; W19.XXXA Unspecified fall, initial encounter; Y93.89 Activity, other specified; Y92.89 Other specified places as the place of occurrence of the external cause; Y99.8 Other external cause status
CPT/HCPCS: 71250; 99284

== ENCOUNTER 2018-11-19 10:37 | Emergency (ER) | payer MEDICAID ==
[~2018-11-19] VITALS: Ht 162.6 cm; Wt 68.0 kg
--- NOTE | 2018-11-19 10:47 | NUR ---
PT IN WHEECHAIR TO ER BED 05
[2018-11-19 10:55] VITALS: BP 148/64
--- NOTE | 2018-11-19 10:57 | NUR ---
X-RAY AT BEDSIDE AT THIS TIME
--- NOTE | 2018-11-19 11:05 | NUR ---
PT BIB CAREGIVER FOR ANKLE PAIN X1 HOUR. PT REPORTS ROLLING ANKLE WHILE WALKING TO RESTROOM THIS MORNING. PT REPORTS NON-RADIATING TABING PAIN AT 10/10 THAT INCREASES WITH MOVEMENT, TOUCH, OR WALKING. PT STATES IT HURTS TO MUCH TO BEAR WEIGHT ON LT FOOT. EDEMA PRESENT ON RT LATERAL ANKLE, +CMS, NO ERYTHEMA, NO DEFORMITY PRESENT. VSS. ER TO SEE PT. MEDHX:CEREBRAL PALSY
--- NOTE | 2018-11-19 11:30 | NUR ---
PROVIDED PT WITH ICE, WRAPPED ANKLE, AND ELEVATED WITH 2 PILLOWS.
[2018-11-19] MEDS ORDERED: MORPHINE SULFATE 4 MG/ML SYR IM ONE (12:05)
[2018-11-19 12:27] VITALS: BP 132/67
== END 2018-11-19 12:27 | disposition home or self-care (01) ==
LOC: MED 10:37
DX: S93.402A Sprain of unspecified ligament of left ankle, initial encounter (principal); Z88.5 Allergy status to narcotic agent; Z88.2 Allergy status to sulfonamides; Z88.8 Allergy status to other drugs, medicaments and biological substances; Z79.82 Long term (current) use of aspirin; Z79.899 Other long term (current) drug therapy; W19.XXXA Unspecified fall, initial encounter; Y93.89 Activity, other specified; Y92.89 Other specified places as the place of occurrence of the external cause; Y99.8 Other external cause status
CPT/HCPCS: 73610; 96372; 99283; J2270

== ENCOUNTER 2020-07-01 17:09 | Emergency (ER) | payer MEDICAID ==
[~2020-07-01] VITALS: Ht 167.6 cm; Wt 65.8 kg
[~2020-07-01 17:09] MED LIST changes: -ASPI-1718 PO; +ASPI-1822 PO
[2020-07-01 17:14] VITALS: BP 111/96
--- NOTE | 2020-07-01 17:19 | NUR ---
PATIENT WHEELCHAIRED TO ER BED 08
--- NOTE | 2020-07-01 17:19 | NUR ---
Call for poultry picking machine tender upon discharge-- Cecile- tobacco scrap sifter [phone]
--- NOTE | 2020-07-01 17:23 | NUR ---
59/F c/o left lateral chest/rib pain s/p landing on that area when falling in bath tub on 06/29. Denies LOC, head injury/trauma. Denies taking any pain meds at home. No bruising noted. Skin intact. medhx: cerebral palsy, epilepsy
[2020-07-01] MEDS ORDERED: HYDROcodone/APAP 5/325 MG 1 TAB TAB PO ONE (17:45)
--- NOTE | 2020-07-01 17:51 | NUR ---
WHEEL ASSEMBLER AT BEDSIDE
--- NOTE | 2020-07-01 18:10 | NUR ---
pt still at xray, will admin ordered med when pt is back
--- NOTE | 2020-07-01 18:14 | NUR ---
back to bed 08 via karla from [facility]
--- NOTE | 2020-07-01 18:25 | NUR ---
PT DOES NOT REMEMBER WHAT HER ALLERGIC RXN IS TO CODEINE, UNABLE TO RECALL THE SEVERITY OF RXN EITHER. CONFIRMED W/ ILIA CORNEJO THAT IT IS OKAY TO ADMIN NORCO WHEN PT HAS CODEINE ALLERGY.
--- NOTE | 2020-07-01 18:55 | NUR ---
called Cecile (pile operator) to inform her of pt's d/c and to come pick out hand pt. Cecile states ETA approx 1920.
--- NOTE | 2020-07-01 19:09 | NUR ---
REPORT RECEIVED FROM BRAYDON CHAMORRO
--- NOTE | 2020-07-01 19:09 | NUR ---
report to SANG BRYSON; transfer of care at this time
[2020-07-01 19:23] VITALS: BP 111/96
--- NOTE | 2020-07-01 19:23 | NUR ---
READY FOR DISCHARGE. ASSISTED TO W/C. ACI, RX GIVEN TO CAREGIVERS.Patient discharged with v/s stable. Written and verbal after care instructions given and explained. Patient alert, oriented and verbalized understanding of instructions. Wheel Chair Assisted with by caregiver. All questions addressed prior to discharge. ID band removed. Patient advised to follow up with PMD. Rx of EXTRA STRENGTH TYLENOL given. Patient educated on indication of medication including possible reaction and side effects. Opportunity to ask questions provided and answered.
== END 2020-07-01 19:23 | disposition home or self-care (01) ==
LOC: MED 17:09
DX: M54.5 Low back pain (principal); M25.552 Pain in left hip; Z98.890 Other specified postprocedural states; Z79.82 Long term (current) use of aspirin; Z79.899 Other long term (current) drug therapy; Z88.5 Allergy status to narcotic agent; Z88.6 Allergy status to analgesic agent; Z88.2 Allergy status to sulfonamides
CPT/HCPCS: 72110; 73502; 99284

== ENCOUNTER 2021-12-03 13:46 | Emergency (ER) | payer MEDICAID ==
[~2021-12-03] VITALS: Ht 167.6 cm; Wt 65.8 kg
[2021-12-03 13:48] VITALS: BP 130/78
--- NOTE | 2021-12-03 13:58 | NUR ---
PT AMBULATED TO BED 12.
--- NOTE | 2021-12-03 14:02 | NUR ---
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 SWELLING AND BRUISES NOTED ON THE KNUCKLES OF THE RIGHT HAND. RING IN THE RING H=FINGER, PT UNABLE TO TAKE IT OFF. DENIES HITTING HEAD/LOC. ABLE TO MOVE FINGERS, DENIES ANY PARETHESIAS. PMH: ALLERGIES: CODEINE, IBUPROFEN, SULFAMETHIZOLE
--- NOTE | 2021-12-03 14:06 | NUR ---
RAD AT BEDSIDE
--- NOTE | 2021-12-03 14:20 | NUR ---
SEIZURE PRECAUTIONS DONE
[2021-12-03] MEDS ORDERED: ACETAMINOPHEN 325 MG TAB PO ONE (14:30)
[2021-12-03] MEDS ORDERED: ACET-1194 PO (14:36)
--- NOTE | 2021-12-03 14:48 | NUR ---
RING IN THE RIGHT HAND MOVED TO THE LEFT RING FINGER
--- NOTE | 2021-12-03 14:51 | NUR ---
AMBULATED TO BATHROOM WITH WALKER
--- NOTE | 2021-12-03 14:58 | NUR ---
Patient discharged with v/s stable. Written and verbal after care instructions ABOUT HAND CONTUSION given and explained. Patient alert, oriented and verbalized understanding of instructions WITH CAREGIVER RIKKI. Ambulatory WITH WALKER, with steady gait. All questions addressed prior to discharge. ID band removed. Patient advised to follow up with PMD. Rx of ACETAMINOPHEN given. Patient educated on indication of medication including possible reaction and side effects. Opportunity to ask questions provided and answered.
== END 2021-12-03 14:57 | disposition home or self-care (01) ==
LOC: MED 13:46
DX: S60.221A Contusion of right hand, initial encounter (principal); Z86.69 Personal history of other diseases of the nervous system and sense organs; Z79.899 Other long term (current) drug therapy; Z79.82 Long term (current) use of aspirin; Z79.2 Long term (current) use of antibiotics; Z88.5 Allergy status to narcotic agent; Z88.6 Allergy status to analgesic agent; Z88.2 Allergy status to sulfonamides; W18.39XA Other fall on same level, initial encounter; Y92.89 Other specified places as the place of occurrence of the external cause; Y93.89 Activity, other specified; Y99.8 Other external cause status
CPT/HCPCS: 73130; 99283; Q0092

== ENCOUNTER 2021-12-16 12:53 | Emergency (ER) | payer MEDICAID ==
[~2021-12-16] VITALS: Ht 167.6 cm; Wt 65.8 kg
[~2021-12-16 12:53] MED LIST changes: +ACET-1194 PO
[2021-12-16 13:06] VITALS: BP 120/54
[2021-12-16] MEDS ORDERED: ACETAMINOPHEN 325 MG TAB PO ONE (13:35)
--- NOTE | 2021-12-16 14:13 | NUR ---
61/F BIB CAREGIVER WITH C/O BACK PAIN S/P FALLING WHILE ATTEMPTING TO USE THE RESTROOM, DENIES HEAD/NECK INJURY OR LOC. PATIENT REPORTS 10/10 ACHING PAIN THAT WORSENS WHEN ATTEMPTING TO STAND OR MOVE.
[2021-12-16] MEDS ORDERED: HYDROcodone/APAP 5/325 MG 1 TAB TAB PO ONE (15:15)
--- NOTE | 2021-12-16 15:59 | NUR ---
Patient discharged with v/s stable. Written and verbal after care instructions ABOUT ACUTE BACK PAIN AND CONTUSION given and explained. Patient verbalized understanding. Wheel Chair Assisted with to car. All questions addressed prior to discharge. Advised to follow up with PMD.
== END 2021-12-16 15:59 | disposition home or self-care (01) ==
LOC: MED 12:53
DX: S20.221A Contusion of right back wall of thorax, initial encounter (principal); Z86.69 Personal history of other diseases of the nervous system and sense organs; Z79.899 Other long term (current) drug therapy; Z79.2 Long term (current) use of antibiotics; Z79.82 Long term (current) use of aspirin; Z88.5 Allergy status to narcotic agent; Z88.6 Allergy status to analgesic agent; Z88.2 Allergy status to sulfonamides; W01.198A Fall on same level from slipping, tripping and stumbling with subsequent striking against other object, initial encounter; Y92.002 Bathroom of unspecified non-institutional (private) residence as the place of occurrence of the external cause; Y93.89 Activity, other specified; Y99.8 Other external cause status
CPT/HCPCS: 72072; 99283

== ENCOUNTER 2022-08-15 09:28 | Emergency (ER) | payer MEDICAID ==
[~2022-08-15] VITALS: Ht 167.6 cm; Wt 65.8 kg
[2022-08-15 09:37] VITALS: BP 117/87
--- NOTE | 2022-08-15 10:05 | NUR ---
bib caregiver s/p trip and fall x thursday. landed on right side. c/o rib pain 12/17. no hematoma noted. denies sob or chest pain, head trauma. aao x4. hx cerebral palsy. ambulates with walker. resp even and nonlabored. pending md fay
[2022-08-15] MEDS ORDERED: ACETAMINOPHEN EXTRA STRENGTH 500 MG TAB PO ONE (11:50)
[2022-08-15 12:13] VITALS: BP 122/74
--- NOTE | 2022-08-15 12:14 | NUR ---
Patient discharged with v/s stable. Written and verbal after care instructions given and explained to caregiver. Patient verbalized understanding. Ambulatory with steady gait via walker. All questions addressed prior to discharge. Advised to follow up with PMD.
== END 2022-08-15 12:14 | disposition home or self-care (01) ==
LOC: MED 09:28
DX: S20.20XA Contusion of thorax, unspecified, initial encounter (principal); W19.XXXA Unspecified fall, initial encounter; Y93.89 Activity, other specified; Y92.89 Other specified places as the place of occurrence of the external cause; Y99.8 Other external cause status
CPT/HCPCS: 71101; 99283

== ENCOUNTER 2023-09-13 10:06 | Emergency (ER) | payer MEDICAID ==
[~2023-09-13] VITALS: Ht 167.6 cm; Wt 66.2 kg
[~2023-09-13 10:06] MED LIST changes: -OXYB5TAB24 PO; +[UNRECOGNIZED DRUG - CODE] PO
[2023-09-13 10:08] VITALS: BP 109/67; PULSE 96; RESP 18; TEMP 97.6; O2SAT 96
[2023-09-13 13:06] LABS: FLU A ANTIGEN negative (NEGATIVE); FLU B ANTIGEN negative (NEGATIVE)
[2023-09-13] MEDS ORDERED: ROB PO (13:38)
[2023-09-13] MEDS ORDERED: ACET-10509 PO (13:38)
[2023-09-13] MEDS ORDERED: IBUP-1842 PO (13:38)
[2023-09-13] MEDS ORDERED: BENZ200C4 PO (13:38)
== END 2023-09-13 14:47 | disposition home or self-care (01) ==
LOC: MED 10:06
DX: J06.9 Acute upper respiratory infection, unspecified (principal); Z20.822 Contact with and (suspected) exposure to COVID-19; Z88.2 Allergy status to sulfonamides; Z79.1 Long term (current) use of non-steroidal anti-inflammatories (NSAID); Z79.899 Other long term (current) drug therapy
CPT/HCPCS: 71045; 87426; 87804; 99284; Q0092

== ENCOUNTER 2024-05-23 10:56 | Emergency (ER) | payer MEDICAID ==
[~2024-05-23] VITALS: Ht 167.6 cm; Wt 65.8 kg
[~2024-05-23 10:56] MED LIST changes: +ACET500T99 PO; +BENZ200C4 PO; +IBUP-1842 PO; +ROB PO
[2024-05-23 11:02] VITALS: BP 103/56; PULSE 69; RESP 16; TEMP 97.4; O2SAT 100
[2024-05-23 11:14] VITALS: O2SAT 100
[2024-05-23] MEDS: ACETAMINOPHEN 325 MG TAB PO ONE (11:36)
== END 2024-05-23 12:46 | disposition home or self-care (01) ==
LOC: MED 10:56
DX: S92.352A Displaced fracture of fifth metatarsal bone, left foot, initial encounter for closed fracture (principal); Z86.69 Personal history of other diseases of the nervous system and sense organs; Z79.899 Other long term (current) drug therapy; Z88.6 Allergy status to analgesic agent; Z88.5 Allergy status to narcotic agent; Z88.2 Allergy status to sulfonamides; W19.XXXA Unspecified fall, initial encounter; Y93.89 Activity, other specified; Y92.89 Other specified places as the place of occurrence of the external cause; Y99.8 Other external cause status
CPT/HCPCS: 29515; 73630; 99283